=== PATIENT | male | born 1980 | race African-American/Black ===

== ENCOUNTER 2017-02-03 13:58 | Inpatient (IN) | payer OTHER ==
[~2017-02-03] VITALS: Ht 180.3 cm; Wt 88.6 kg
--- NOTE | 2017-02-03 14:19 | NUR ---
PT AMBULATORY TO ROOM 4 WITH STEADY GAIT FOR MEDICAL CLEARANCE. PER PT HE WAS DROPPED OFF AT ED BY HIS FIANCE. PT REPORTS SUICIDAL THOUGHTS X4 DAYS WITH PLAN TO "TAKE MORE MEDS THAN I NEED TO." PT ALSO REPORTS HE WAS ON A HIGH DOSE OF SEROQUEL AND IT WAS CHANGED TO LATUDA BY HIS MD 2 MONTHS AGO AND HE DOES NOT FEEL THAT IT IS EFFECTIVE. PT REPORTS HX OF SUICIDE ATTEMPT IN 2006. PT A/O X4, RESPS EVEN AND UNLABORED, SKIN WARM/DRY TO TOUCH, NO S/S OF DISTRESS NOTED. PT IN VIEW OF NURSE'S STATION.
[2017-02-03 15:02] LABS: BASOPHIL % 0.3 % (0-2); PLATELET COUNT 201 x10^3mcL (130-400); RED CELL DISTRIBUTION WIDTH 12.4 % (11.5-14.5)
[2017-02-03 15:15] LABS: CALCIUM 8.5 mg/dL (8.5-10.1); CARBON DIOXIDE 27.8 mmol/L (21-32); CHLORIDE SERUM 105 mmol/L (98-107); CREATININE SERUM 0.9 mg/dL (0.7-1.3); GFR1 > 60 mL/min; GLUCOSE SERUM 94 mg/dL (74-106); POTASSIUM SERUM 3.6 mmol/L (3.5-5.1); SODIUM SERUM 139 mmol/L (136-145)
[2017-02-03 15:18] LABS: ALBUMIN 3.7 g/dL (3.4-5.0); ALKALINE PHOSPHATASE 55 U/L (46-116); ALT/SGPT 32 U/L (16-63); AST/SGOT 20 U/L (15-37); BILIRUBIN TOTAL 0.3 mg/dL (0.20-1.00); TOTAL PROTEIN, SERUM 6.7 g/dL (6.4-8.2)
--- NOTE | 2017-02-03 15:58 | NUR ---
DR. JENKINS AT BEDSIDE FOR EVAL OF PT.
--- NOTE | 2017-02-03 16:09 | NUR ---
PT AWARE OF NEED FOR URINE SAMPLE, ATTEMPTED X2, SPECIMEN CUP AT BEDSIDE.
--- NOTE | 2017-02-03 17:00 | NUR ---
DR. BEAR @ BEDSIDE.
[2017-02-03] MEDS ORDERED: RISPERDAL3 M1 PO (17:21)
[2017-02-03] MEDS ORDERED: SERO100 PO (17:21)
[2017-02-03] MEDS ORDERED: BUS10 PO (17:22)
[2017-02-03] MEDS ORDERED: LATUDA40 M1 PO (17:22)
[2017-02-03] MEDS ORDERED: DEPAKOTE500 MG PO (17:23)
[2017-02-03 17:35] LABS: CHOLESTEROL/HDL RATIO 3.7; PHOSPHOROUS 4.4 mg/dL (2.5-4.9)
--- NOTE | 2017-02-03 17:35 | NUR ---
PT AMBULATORY TO AND FROM BATHROOM WITH STEADY GAIT, PT REPORTS HE IS STILL UNABLE TO PROVIDE A URINE SAMPLE. PT GIVEN MORE WATER.
[2017-02-03 17:44] LABS: FREE T4 0.88 ng/dL (0.76-1.46); FREE THYROXINE INDEX 2.2 ug/dL (1.4-4.5); T4(THYROXINE) 6.6 ug/dL (4.7-13.3)
[2017-02-03 17:50] LABS: T3 TOTAL 1.03 ng/mL
--- NOTE | 2017-02-03 18:06 | NUR ---
REPORT GIVEN TO SARITHA EDWARDS. PT TO BE ADMITTED TO TELE ROOM 201B, PT IN NO DISTRESS.
--- NOTE | 2017-02-03 18:20 | NUR ---
PT ARRIVED FROM ED, WILL ASSESS.
[2017-02-03 18:44] VITALS: BP 117/81
--- NOTE | 2017-02-03 19:00 | NUR ---
PT A/OX4, TELE 6, NSR, PULSES PRESENT NO EDEMA, LUNGS CTA ON RA, BOWEL SOUNDS ACTIVE, ABLE TO VOID, AMBULATORY, SKIN WARM DRY INTACT, DENIES ALL PAIN AT THIS TIME, IV TO LFA INFUSING NS AT 100ML/HR, DEPRESSED MOOD, COOPERATIVE, ADMITS TO HAVING SUICIDE PLAN, WILL ENDORSE PT TO NEXT SHIFT.
--- NOTE | 2017-02-03 19:42 | NUR ---
RECEIVED PT FROM AM NURSE IN NO ACUTE DISTRESS, A/OX4, LAYING IN BED COMFORTALY, TELE #6 NSR, DENIES ANY PAIN AT THIS TIME. PULSES PALPABLE AND EVEN, NO EDEMA NOTED, LUNGS CLEAR, BREATHING EVEN AND UNLABORED, AMBULATORY, SKIN WARM DRY AND INTACT, IV INTACT AND PATENT, WILL CONT TO MONITOR.
--- NOTE | 2017-02-04 00:59 | NUR ---
PT RESTING IN BED WITH EYES CLOSED. BREATHING EQUAL AND UNLABORED. NO S/S OF RESPIRATORY DISTRESS NOTED. IV PATENT AND INFUSING WELL. SITTER AT BEDSIDE. NO S/S OF DISTRESS OR DISCOMFORT NOTED. WILL CONTINUE TO MONITOR.
[2017-02-04 05:37] VITALS: BP 107/66
--- NOTE | 2017-02-04 06:09 | NUR ---
PT SLEPT WELL THROUGH THE NIGHT. CURRENTLY RESTING WITH EYES CLOSED. BREATHING EQUAL AND UNLABORED. NO BEHAVIORS NOTED. IV PATENT AND INFUSING WELL. NO S/S OF DISTRESS OR DISCOMFORT NOTED. CALL LIGHT WITHIN REACH. SITTER AT BEDSIDE. WILL CONTINUE TO MONITOR.
[2017-02-04 06:19] LABS: CALCIUM 8.2 mg/dL (8.5-10.1); CARBON DIOXIDE 28.3 mmol/L (21-32); CHLORIDE SERUM 105 mmol/L (98-107); CREATININE SERUM 0.9 mg/dL (0.7-1.3); GFR1 > 60 mL/min; GLUCOSE SERUM 81 mg/dL (74-106); PHOSPHOROUS 3.3 mg/dL (2.5-4.9); SODIUM SERUM 139 mmol/L (136-145)
[2017-02-04 06:45] LABS: BASOPHIL % 0.4 % (0-2); PLATELET COUNT 190 x10^3mcL (130-400); RED CELL DISTRIBUTION WIDTH 12.1 % (11.5-14.5)
--- NOTE | 2017-02-04 07:20 | NUR ---
PT RECEIVED DURING CHANGE OF SHIFT, A/OX4, TELE 6, NSR, DENIES CHEST PAIN, PULSES PRESENT, NO EDEMA, LUNGS CTA ON RA, DENIES SOB, BREATHING EVEN AND UNLABORED, DENIES N/V/D, BOWEL SOUNDS ACTIVE, ABLE TO VOID, AMBULATORY, BRP, SKIN WARM DRY INTACT, DENIES ALL PAIN, IV TO LFA INFUSING NS AT 100ML/HR, DEPRESSED WITH SUICIDAL THOUGHTS, CALL LIGHT WITHIN REACH, SITTER AT BEDSIDE, WILL CONTINUE TO MONITOR.
--- NOTE | 2017-02-04 08:09 | NUR ---
DR. RAYA AND RESIDENTS MAKING ROUNDS, PLAN OF CARE DISCUSSED.
--- NOTE | 2017-02-04 08:14 | NUR ---
PT DENIES SOB, DENIES PAIN, STATES HE STILL FEELS DEPRESSED, STILL HAVING THOUGHTS OF SUICIDE, SITTER AT BEDSIDE, CALL LIGHT WITHIN REACH, WILL CONTINUE TO MONITOR.
[2017-02-04 08:24] VITALS: BP 133/76
--- NOTE | 2017-02-04 09:07 | NUR ---
PT ASLEEP, NO INDICATION OF PAIN, BREATHING EVEN AND UNLABORED, SITTER AT BEDSIDE, CALL LIGHT WITHIN REACH, WILL CONTINUE TO MONITOR.
--- NOTE | 2017-02-04 10:16 | NUR ---
PT ASLEEP, NO INDICATION OF PAIN, BREATHING EVEN AND UNLABORED, CALL LIGHT WITHIN REACH, SITTER AT BEDSIDE, WILL CONTINUE TO MONITOR.
--- NOTE | 2017-02-04 11:32 | NUR ---
PT DENIES SOB, DENIES PAIN, DIABETIC TEACHING DONE, CALL LIGHT WITHIN REACH, SITTER AT BEDSIDE, WILL CONTINUE TO MONITOR.
--- NOTE | 2017-02-04 12:18 | NUR ---
PT ASLEEP BUT AROUSABLE, DENIES PAIN, DENIES SOB, CALL LIGHT WITHIN REACH, SITTER AT BEDSIDE, WILL CONTINUE TO MONITOR.
--- NOTE | 2017-02-04 13:14 | NUR ---
PT ASLEEP, NO INDICATION OF PAIN, BREATHING EVEN AND UNLABORED, CALL LIGHT WITHIN REACH, SITTER AT BEDSIDE, WILL CONTINUE TO MONITOR.
--- NOTE | 2017-02-04 14:04 | NUR ---
PT ASLEEP, NO INDICATION OF PAIN, BREATHING EVEN AND UNLABORED, SITTER AT BEDSIDE, WILL CONTINUE TO MONITOR.
[2017-02-04 14:47] VITALS: BP 126/68
--- NOTE | 2017-02-04 15:01 | NUR ---
PT ASLEEP, NO INDICATION OF PAIN, BREATHING EVEN AND UNLABORED, CALL LIGHT WITHIN REACH, SITTER AT BEDSIDE, WILL CONTINUE TO MONITOR.
--- NOTE | 2017-02-04 16:16 | NUR ---
PT DENIES PAIN, DENIES SOB, SITTER AT BEDSIDE, CALL LIGHT WITHIN REACH, WILL CONTINUE TO MONITOR.
--- NOTE | 2017-02-04 17:17 | NUR ---
PT ASLEEP, NO INDICATION OF PAIN, BREATHING EVEN AND UNLABORED, CALL LIGHT WITHIN REACH, WILL CONTINUE TO MONITOR.
--- NOTE | 2017-02-04 18:14 | NUR ---
PT EATING DINNER, DENIES SOB, DENIES PAIN, SITTER AT BEDSIDE, CALL LIGHT WITHIN REACH, WILL ENDORSE PT TO NEXT SHIFT.
[2017-02-04 18:21] VITALS: BP 125/78
--- NOTE | 2017-02-04 19:47 | NUR ---
PT ALERT AND AWAKE. AOX4. VERBAL WITH CLEAR SPEECH. NO S/S OF RESPIRATORY DISTRESS NOTED. LUNGS CLEAR BILATERALLY. DENIES ANY CHEST PAIN. ON TELE 6, NSR WITH ELEVATED T. ABD SOFT AND FLAT. LAST BM 02/04/17. SKIN WARM AND DRY. IV TO LEFT FA PATENT AND INTACT. IV NS INFUSING WELL AT 100 ML/HR. NO S/S OF INFECTION NOTED. BOWEL SOUNDS ACTIVE. NO EDEMA NOTED. DENIES ANY PAIN AT THIS TIME. CALM AND COOPERATIVE WITH ASSESSMENT. PT STATES FEELING DEPRESSED. NO S/S OF DISTRESS NOTED. CALL LIGHT WITHIN REACH. SITTER AT BEDSIDE. WILL CONTINUE TO MONITOR.
[2017-02-04 22:16] VITALS: BP 112/62
--- NOTE | 2017-02-05 00:10 | NUR ---
PT RESTING IN BED WITH EYES CLOSED. NO S/S OF RESPIRATORY DISTRESS NOTED. BREATHING EQUAL AND UNLABORED. IV PATENT AND INFUSING WELL. NO S/S OF DISTRESS OR DISCOMFORT NOTED. SITTER AT BEDSIDE. CALL LIGHT WITHIN REACH. WILL CONTINUE TO MONITOR.
--- NOTE | 2017-02-05 05:33 | NUR ---
PT SLEPT WELL THROUGHOUT THE NIGHT. EASILY AROUSED WHEN NAME CALLED. VERBAL WITH CLEAR SPEECH. NO S/S OF RESPIRATORY DISTRESS NOTED. IV PATENT AND INFUSING WELL. DENIES ANY PAIN AT THIS TIME. NO S/S OF DISTRESS NOTED. SITTER REMAINS AT BEDSIDE. CALL LIGHT WITHIN REACH. WILL CONTINUE TO MONITOR.
[2017-02-05 06:05] VITALS: BP 110/58
--- NOTE | 2017-02-05 07:15 | NUR ---
RECEIVED REPORT FROM [facility] JERRY URBAN AT THIS TIME. PATIENT IS RESTING IN BED, AWAKE, ALERT AND O X 4. ON ROOM AIR, NO DISTRESS NOTED. TELE # [address], DENIES CHEST PAIN/DISCOMFORT. BOWEL SOUNDS ACTIVE, DENIES URINARY DIFFICULTIES. IV TO LFA IN PLACE. PATIENT STATES HE HAS SUICIDAL IDEATION AND HIS PLAN IS TO OVER DOSE WITH MEDICATION. SITTER AT THE BEDSIDE.
[2017-02-05 10:26] VITALS: BP 110/68
[2017-02-05 11:14] LABS: microscopic required? NO
[2017-02-05 11:52] LABS: urine erythrocyte NEGATIVE (NEGATIVE)
[2017-02-05 12:00] LABS: AMPHETAMINE QUAL UR NONE DETECTED (NEG <=1000)
--- NOTE | 2017-02-05 12:12 | NUR ---
IN TO SEE PATIENT AND GIVE DUE MEDICATION AT THIS TIME (SEE EMAR). PATIENT AMBULATED FROM BATHROOM TO BED, GAIT IS STEADY. SITTER AT THE BEDSIDE. WILL CONTINUE TO MONITIOR.
--- NOTE | 2017-02-05 17:00 | NUR ---
IN TO SEE PATIENT AND GIVE DUE MEDICATION (SEE EMAR). PATIENT RESTING IN BED, NO DISTRESS NOTED, SITTER AT THE BEDSIDE.
[2017-02-05 18:30] VITALS: BP 128/79
--- NOTE | 2017-02-05 19:20 | NUR ---
REC'D PT RESTING IN BED. PT IS AAOX4. TELE #6 SR WITH ELEVATED T-WAVE. DENIES PAIN OR DISCOMFORT. LUNG SOUNDS CLEAR. NO SOB NOTED. PT STATES HE STILL HAS SUICIDAL THOUGHTS AT THIS TIME. IVF INFUSING TO LFA PER DOCTOR'S ORDER. 1:1 SITTER AT BEDSIDE. CALL LIGHT WITHIN REACH. WILL CONTINUE TO MONITOR.
[2017-02-05 21:00] VITALS: BP 114/76; BP 117/76
--- NOTE | 2017-02-06 04:51 | NUR ---
PT SLEPT WELL. NO DISTRESS NOTED. IVF INFUSING WELL. CALL LIGHT WITHIN REACH. WILL CONTINUE TO MONITOR.
[2017-02-06 05:36] VITALS: BP 106/64
--- NOTE | 2017-02-06 07:00 | NUR ---
RECEIVED REPORT FROM [facility] JERRY MELARA AT THIS TIME. PATIENT AWAKE, ALERT AND O X 4. PATIENT STATES HE STILL HAS SUICIDAL IDEATION BUT HE THINKS ABOUT IT LESS THAN YESTERDAY AND HAS NO PLAN AT THIS TIME. ON TELE # 6, NO CHEST PAIN. PULSES MODERATE, NO EDEMA. ON ROOM AIR, NO DISTRESS NOTED, LUNGS CTA. IV TO LFA IN PLACE. SCDS AT THE BEDSIDE. SITTER AT THE BEDSIDE.
[2017-02-06 08:51] VITALS: BP 126/21; BP 126/71
[2017-02-06 11:57] VITALS: Ht 180.3 cm; Wt 88.6 kg
--- NOTE | 2017-02-06 12:40 | NUR ---
IN TO SEE PATIENT AT THIS TIME. PATIENT AWAKE, ALERT AND O X4 NO DISTRESS NOTED. PATIENT STATES HE IS FEELING BETTER.
[2017-02-06 13:09] VITALS: BP 122/74
--- NOTE | 2017-02-06 15:00 | NUR ---
DR. LOVE IN TO SEE PATIENT AND CLEARED PATIENT PSYCHOLOGY. PATIENT RESTING IN BED, FAMILY AT THE BEDSIDE.
[2017-02-06 16:02] VITALS: BP 122/74
--- NOTE | 2017-02-06 17:00 | NUR ---
DISCHARGE INSTRUCTIONS GIVEN TO PATIENT AND FAMILY AT THIS TIME. INSTRUCTED PATIENT TO MAKE FOLLOW UP APPOINTMENT WITH PCP. PATIENT VERBALIZES UNDERSTANDING. QUESTIONS AND CONCERNS ADDRESSED. IV REMOVED, CATH INTACT. ID BANDS REMOVED. TELE REMOVED AND RETURNED TO BUTTERMAKER.
== END 2017-02-06 17:16 | disposition home or self-care (01) | DRG 753 ==
LOC: ED 13:58 → DU 17:10
PROVIDERS: ADMIT Family Medicine
DX: F31.30 Bipolar disorder, current episode depressed, mild or moderate severity, unspecified (principal); R45.851 Suicidal ideations; I10 Essential (primary) hypertension; R73.03 Prediabetes; F17.200 Nicotine dependence, unspecified, uncomplicated; Z88.8 Allergy status to other drugs, medicaments and biological substances
CPT/HCPCS: 82962; 83880; 84439; G0480; J7030; Q0092